=== PATIENT | male | born 1955 | race Caucasian/White ===

== ENCOUNTER 2016-11-23 10:03 | Emergency (ER) | payer MEDICARE ==
[~2016-11-23] VITALS: Ht 190.5 cm; Wt 97.7 kg
[2016-11-23] MEDS ORDERED: AMLO-512 PO (10:18)
[2016-11-23] MEDS ORDERED: LISI-662 PO (10:18)
[2016-11-23] MEDS ORDERED: TRAZ-147 PO (10:18)
[2016-11-23] MEDS ORDERED: GABA-531 PO (10:18)
[2016-11-23] MEDS ORDERED: OMEP20 PO (10:18)
[2016-11-23] MEDS ORDERED: CARBAMIDE PEROXIDE 6.5% 15 ML OTIC SOLUTION AU ONE (10:45)
[2016-11-23] MEDS ORDERED: LORATADINE/PSEUDOEPHED SULF 5-120 MG SR TABLET PO ONE (10:45)
[2016-11-23] MEDS ORDERED: IBUPROFEN 800 MG TABLET PO ONE (10:45)
[2016-11-23 11:45] VITALS: BP 132/85
== END 2016-11-23 11:50 | disposition home or self-care (01) ==
LOC: EMS 10:06
DX: J06.9 Acute upper respiratory infection, unspecified (principal); J30.9 Allergic rhinitis, unspecified; H61.23 Impacted cerumen, bilateral; I10 Essential (primary) hypertension
CPT/HCPCS: 99284

== ENCOUNTER 2016-12-29 13:35 | Emergency (ER) | payer MEDICARE ==
[~2016-12-29] VITALS: Ht 190.5 cm; Wt 97.7 kg
[~2016-12-29 13:35] MED LIST: AMLO-512 PO; GABA-531 PO; LISI-662 PO; OMEP20 PO; TRAZ-147 PO
[2016-12-29 14:00] VITALS: BP 130/73
== END 2016-12-29 15:48 | disposition home or self-care (01) ==
LOC: EMS 13:38
DX: M79.604 Pain in right leg (principal); M79.605 Pain in left leg; I10 Essential (primary) hypertension
CPT/HCPCS: 99282